=== PATIENT | male | born 1975 | race Caucasian/White ===

== ENCOUNTER → 2019-12-18 | Outpatient (CLI) | payer BC ==
--- NOTE | 2019-12-18 09:50 | KCIC ---
MRI Cervical Spine Without Contrast History:Left hand paresthesia, radiculopathy, neck pain, new onset neck pain and left upper extremity radiculopathy the last 3-4 weeks Technique: Multiplanar, multi sequential noncontrast MR imaging was performed of the cervical spine. Comparison: None Findings: There is some motion degradation. Cervical cord caliber is within normal limits. There is no defined or expansile signal abnormality, although limited accurate characterization for cord signal abnormality due to motion. Cervical vertebral body stature is maintained. There is [id number] reversal of the lordotic curvature centered near C5. AP alignment is within normal limits. There is vttg-bq-[id number] degenerative disc disease C4-C5 and C6-7 and to a lesser degree at C5-6. There are posterior annular tears C3-4 through C5-C6. C2-C3: Neural foramina and spinal canal are adequate. C3-C4: There is moderate left facet degenerative change. There is left uncovertebral degenerative change. Right neural foramen is adequate, moderate to severe narrowing of the left neural foramen. There is negligible disc osteophyte complex. Central canal is adequate about 11 mm. C4-C5: There is minimal broad posterior disc osteophyte complex. Central canal is borderline about 10 mm. There is facet degenerative change bilaterally, also mild left uncovertebral degenerative change. Right neural foramen is adequate, likely mild narrowing of the left neural foramen. C5-C6: There is minimal disc osteophyte complex. Central canal is borderline about 10 to 11 mm. There is mild bilateral facet and uncovertebral degenerative change.There is likely minimal narrowing of the left neural foramen, right neural foramen adequate. C6-C7: There is minimal disc osteophyte complex and central canal adequate about 11 mm. There is left greater than right uncovertebral degenerative change. There is moderate to severe narrowing of the left neural foramen, right neural foramen not significantly narrowed. C7-T1: There is minimal disc osteophyte complex and shallow central protrusion, central canal adequate about 12 mm. Neural foramina are not significantly narrowed. There is facet degenerative change bilaterally. Impression: 1. There is no significant cervical spinal stenosis, borderline narrowing at C4-C5 and C5-6. There is uncovertebral and facet degenerative change contributing to neural foramina compromise as stated greatest on the left at C3-C4 and C6-C7. There is degenerative disc disease greatest at C4-5 and C6-7, mild spondylosis. Electronically signed by: Bhupinder Karimi MD (12/18/2019 9:47 AM) [id number]
== END | disposition home or self-care (01) ==
LOC: KCIC MRI 08:39
PROVIDERS: ATTEND Physician Assistant Medical
DX: M47.22 Other spondylosis with radiculopathy, cervical region (principal); M50.121 Cervical disc disorder at C4-C5 level with radiculopathy; M50.23 Other cervical disc displacement, cervicothoracic region; M25.78 Osteophyte, vertebrae
CPT/HCPCS: 72141

== ENCOUNTER → 2021-06-28 | Outpatient (CLI) | payer OTHER ==
--- NOTE | 2021-06-28 11:59 | KCIC ---
EXAM: Right ankle, 3 views. HISTORY: Pain. COMPARISON: None. FINDINGS: 3 views of the right ankle are obtained. There is a corticated ossicles inferior to the med ial malleolus, likely due to chronic nonunited avulsion fracture fragments. No acute fracture is seen . There is no osteochondral lesion. There is mild anterior tibiotalar joint spurring. There is an oss icle along the medial aspect of the talus which is likely due to a chronic nonunited avulsion fractur e fragment. IMPRESSION: 1. No acute osseous finding. 2. 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 3. Mild tibiotalar joint osteoarthritis. Electronically signed by: Trudi Wray MD (06/28/2021 11:56 AM) [id number]
== END ==
LOC: KCIC 11:27
PROVIDERS: ATTEND Family Medicine
DX: M19.071 Primary osteoarthritis, right ankle and foot (principal); M77.8 Other enthesopathies, not elsewhere classified
CPT/HCPCS: 73610

== ENCOUNTER → 2021-07-17 | Outpatient (CLI) | payer OTHER ==
--- NOTE | 2021-07-18 13:15 | SLEEP ---
DATE OF STUDY: 07/17/2021 HOME SLEEP STUDY ATTENDING PHYSICIAN: Dr. Leti Carter. The patient is 45 years old who weighs 268 pounds with a BMI of 36.3. The patient's Rocheport score was 13. The patient underwent home sleep study performed by [facility]. Total recording time was 525 minutes. During the night study, the patient had 363 obstructive apneas, 21 central apneas, no mixed apneas and 18 hypopneas. The patient's AHI was 46 per hour. Nocturnal oximetry study revealed an average oxygen saturation of 94% with a lowest of 82%. 18 minutes were spent with oxygen saturation of less than 90%. Mean heart rate 57 beats per minute. IMPRESSION: 1. Severe obstructive sleep apnea with an nxvkw-[id number]-[id number] index of 46 per hour. 2. Nocturnal hypoxia secondary to obstructive sleep apnea. RECOMMENDATIONS: 1. The patient would benefit from treatment of sleep apnea with CPAP. This can be performed as an in-lab study. Alternatively home auto CPAP can be arranged. 2. Once the patient is optimally treated with CPAP, then follow up in 4-6 weeks to assess compliance and to document clinical improvement. 3. Weight loss is strongly advised. 4. Avoid MACH[employer] depressants. 5. Cautioned regarding driving until symptoms of sleep apnea resolves with the use of CPAP. KAMALA/ISAAC/JIMMIE DR: Blair TID: [id number] CC: LETI CARTER MD
== END ==
LOC: RT 09:13
PROVIDERS: ATTEND Family Medicine
DX: G47.33 Obstructive sleep apnea (adult) (pediatric) (principal); R09.02 Hypoxemia
CPT/HCPCS: G0399